=== PATIENT | male | born 2000 | race Caucasian/White ===

== ENCOUNTER → 2022-10-15 14:07 | Outpatient (BNVA) | payer OTHER, MEDICAID, SELFPAY | PROVIDERS: PCP Nurse Practitioner Family; Visit Provider Nurse Practitioner Family | DX: N50.819 Testicular pain, unspecified (principal) | CPT/HCPCS: 81000; 87491; 87591 ==

== ENCOUNTER → 2023-04-02 13:32 | Outpatient (BNVA) | payer OTHER, MEDICAID, SELFPAY | PROVIDERS: PCP Nurse Practitioner Family; Visit Provider Nurse Practitioner Family | DX: R05.9 Cough, unspecified (principal); Z11.52 Encounter for screening for COVID-19 | CPT/HCPCS: 87426 ==